=== PATIENT | male | born 1990 | race American Indian/Alaskan Native ===

== ENCOUNTER 2017-09-20 21:09 | Emergency (ER) | payer MEDICAID ==
[~2017-09-20] VITALS: Ht 175.3 cm; Wt 90.1 kg
[~2017-09-20 21:09] MED LIST: DIPH1TAB PO; IBUP-1986 PO; PANT-47 PO; PRED10TA PO
[2017-09-20 21:31] VITALS: BP 133/84
== END 2017-09-20 22:00 | disposition left against medical advice (07) ==
LOC: ER 21:28
DX: L23.7 Allergic contact dermatitis due to plants, except food (principal); F12.10 Cannabis abuse, uncomplicated; F15.10 Other stimulant abuse, uncomplicated; F11.10 Opioid abuse, uncomplicated
CPT/HCPCS: 99281

== ENCOUNTER 2018-02-27 08:31 | Inpatient (IN) | payer MEDICAID ==
[~2018-02-27] VITALS: Ht 175.3 cm; Wt 87.7 kg
[2018-02-27] MEDS ORDERED: acetaminophen 325mg tablet PO ONE ×2 (08:40→10:25)
[2018-02-27 09:02] LABS: BASOPHILS % (AUTO) 0 % (0-1); EOSINOPHILS % (AUTO) 0.1 % (0-6); HEMATOCRIT 42.2 % (42.0-52.0); HEMOGLOBIN 14.4 g/dl (14.0-17.9); LYMPHOCYTES # (AUTO) 0.8 X10'3 (1.1-4.8); LYMPHOCYTES % (AUTO) 5.4 % (21-51); MEAN CORPUSCULAR HEMOGLOBIN 28.9 PG (27.0-31.0); MEAN CORPUSCULAR HGB CONC 34.2 % (33.0-36.5); MEAN CORPUSCULAR VOLUME 84.6 FL (78-98); MEAN PLATELET VOLUME 6.7 FL (7.4-10.4); MONOCYTES # (AUTO) 1.3 X10'3 (0-0.9); MONOCYTES % (AUTO) 8.6 % (2-12); NEUTROPHILS # (AUTO) 13.1 X10'3 (1.8-7.7); NEUTROPHILS % (AUTO) 85.9 % (42-75); PLATELET COUNT 257 X10'3 (140-440); RED BLOOD COUNT 4.98 X10'6 (4.70-6.10); RED CELL DISTRIBUTION WIDTH 13.4 % (11.5-14.5); WHITE BLOOD COUNT 15.2 X10'3 (4.5-11.0)
[2018-02-27 09:13] LABS: PARTIAL THROMBOPLASTIN TIME 32 SECONDS (22-32); PROTHROMBIN TIME 10.3 SECONDS (9.0-12.0)
[2018-02-27 09:19] LABS: ALANINE AMINOTRANSFERASE 25 U/L (12-78); ALBUMIN 3.4 G/DL (3.4-5.0); ALBUMIN/GLOBULIN RATIO 0.8 (1.1-1.5); ALKALINE PHOSPHATASE 52 IU/L (46-116); ANION GAP 14 (8-16); ASPARTATE AMINO TRANSFERASE 17 U/L (10-37); BILIRUBIN,TOTAL 0.4 MG/DL (0.1-1.0); BLOOD UREA NITROGEN 12 MG/DL (7-18); BUN/CREATININE RATIO 12.4 (5.4-32.0); CALCIUM 9.1 MG/DL (8.5-10.1); CHLORIDE 95 MMOL/L (99-107); CREATININE 0.97 MG/DL (0.60-1.10); GLUCOSE 121 MG/DL (70-104); POTASSIUM 3.7 MMOL/L (3.5-5.1); SODIUM 135 MMOL/L (135-145); TOTAL CARBON DIOXIDE 26.1 MMOL/L (24-32); TOTAL PROTEIN 7.9 G/DL (6.4-8.2); eGFR > 90 ML/MIN
[2018-02-27 09:45] LABS: CLARITY,URINE CLEAR (Clear); COLOR,URINE YELLOW (Yellow); GLUCOSE, URINE NEGATIVE (Neg); KETONES,URINE NEGATIVE (Neg); LEUKOCYTE ESTERASE ,URINE NEGATIVE (Neg); NITRITES, URINE NEGATIVE (Neg); OCCULT BLOOD,URINE NEGATIVE (Neg); PH,URINE >=9.0 (4.8-8.0); PROTEIN,URINE 30 mg/dl (Neg)
[2018-02-27 09:50] LABS: UA COLLECTION TYPE NON-SPECIFIED
[2018-02-27 09:51] LABS: BACTERIA,URINE NONE SEEN /HPF (Neg); MUCUS STRANDS FEW /LPF (Neg); RBC,URINE 0-2 /HPF (0-2); SQUAMOUS EPITHELIAL CELL,UR FEW /LPF (FEW)
[2018-02-27] MEDS ORDERED: iohexol 350MG/ML 100ml bottle IV ONE (10:16)
[2018-02-27] MEDS ORDERED: normal saline 1000ML IV soln IVB ONE (10:30)
[2018-02-27] MEDS ORDERED: vancomycin/NS 1 GM ADD-VANTAGE 250 ML IV ONE (10:30)
[2018-02-27] MEDS ORDERED: magnesium 4gm in 100ml NS 100 ML IV PRN (14:05)
[2018-02-27] MEDS ORDERED: magnesium 1gm/100ml D5W IVPB 50 ML IV PRN (14:05)
[2018-02-27] MEDS ORDERED: acetaminophen 325mg tablet PO PRN ×2 (14:05)
[2018-02-27] MEDS ORDERED: HYDROcodone/acetaminophen 5mg/325mg tablet PO PRN (14:05)
[2018-02-27] MEDS ORDERED: potassium Cl 20 mEq SR tablet PO PRN ×2 (14:05)
[2018-02-27] MEDS ORDERED: potassium Cl 40MEQ/NS 500ml 500 ML IV PRN ×2 (14:05)
[2018-02-27] MEDS ORDERED: magnesium Cl slow-release 64mg tablet PO PRN (14:05)
[2018-02-27] MEDS ORDERED: ondansetron/PF 4mg/2ml inj IV PRN (14:05)
[2018-02-27] MEDS ORDERED: LORazepam 0.5 MG tablet PO PRN (14:10)
[2018-02-27] MEDS ORDERED: piperacillin/tazo 3.375gm/50ml 50 ML IV SCH (14:30)
[2018-02-27] MEDS: normal saline 1000ml 1,000 ML IV SCH ×2 (14:45→23:46)
[2018-02-27] MEDS ORDERED: ipratropium/albuterol 3ml nebule NEB PRN (14:55)
[2018-02-27] MEDS ORDERED: levoFLOXACIN-Levaquin 500mg/D5 100 ML IV ONE (14:55)
[2018-02-27] MEDS: methylPREDNISolone sod succ/PF 40mg inj. IV SCH ×2 (15:14→20:36)
[2018-02-27] MEDS ORDERED: NO HOME MEDS (15:15)
[2018-02-27 18:48] VITALS: BP 115/68
[2018-02-27] MEDS: ipratropium/albuterol 3ml nebule NEB SCH (21:36)
[2018-02-27] MEDS: HYDROcodone/acetaminophen 10/325mg tab PO PRN (21:51)
[2018-02-28] VITALS: BP 115/67
[2018-02-28] MEDS: methylPREDNISolone sod succ/PF 40mg inj. IV SCH (02:14)
[2018-02-28] MEDS: normal saline 1000ml 1,000 ML IV SCH (02:14)
[2018-02-28] MEDS: HYDROcodone/acetaminophen 10/325mg tab PO PRN (04:24)
[2018-02-28 05:43] LABS: BASOPHILS % (AUTO) 0 % (0-1); EOSINOPHILS % (AUTO) 0 % (0-6); HEMATOCRIT 39.7 % (42.0-52.0); HEMOGLOBIN 13.6 g/dl (14.0-17.9); LYMPHOCYTES # (AUTO) 0.8 X10'3 (1.1-4.8); LYMPHOCYTES % (AUTO) 6.8 % (21-51); MEAN CORPUSCULAR HEMOGLOBIN 28.8 PG (27.0-31.0); MEAN CORPUSCULAR HGB CONC 34.2 % (33.0-36.5); MEAN CORPUSCULAR VOLUME 84.3 FL (78-98); MEAN PLATELET VOLUME 7.3 FL (7.4-10.4); MONOCYTES # (AUTO) 0.1 X10'3 (0-0.9); MONOCYTES % (AUTO) 0.7 % (2-12); NEUTROPHILS # (AUTO) 10.9 X10'3 (1.8-7.7); NEUTROPHILS % (AUTO) 92.5 % (42-75); PLATELET COUNT 235 X10'3 (140-440); RED CELL DISTRIBUTION WIDTH 13.3 % (11.5-14.5); WHITE BLOOD COUNT 11.8 X10'3 (4.5-11.0)
[2018-02-28 05:51] LABS: ALBUMIN 2.8 G/DL (3.4-5.0); ANION GAP 8 (8-16); BLOOD UREA NITROGEN 12 MG/DL (7-18); CALCIUM 8.6 MG/DL (8.5-10.1); CHLORIDE 100 MMOL/L (99-107); CREATININE 0.92 MG/DL (0.60-1.10); GLUCOSE 169 MG/DL (70-104); MAGNESIUM 1.9 MG/DL (1.5-2.4); POTASSIUM 3.7 MMOL/L (3.5-5.1); SODIUM 136 MMOL/L (135-145); TOTAL CARBON DIOXIDE 27.6 MMOL/L (24-32); eGFR > 90 ML/MIN
[2018-02-28] MEDS: ipratropium/albuterol 3ml nebule NEB SCH (07:52)
[2018-02-28 08:00] VITALS: BP 99/57
[2018-02-28] MEDS ORDERED: levoFLOXACIN-Levaquin 500mg/D5 100 ML IV SCH (08:00)
[2018-02-28] MEDS ORDERED: K and/or MAG REPLACEMENT MC SCH (08:00)
== END 2018-02-28 10:00 | disposition left against medical advice (07) | DRG 203 ==
LOC: ER 08:31 → ED HOLD 14:01 → EDBEDREQ 17:12 → SUR 3N 17:50
PROVIDERS: ADMIT Internal Medicine; ATTEND Family Medicine
PROC: B32T1ZZ Computerized Tomography (CT Scan) of Left Pulmonary Artery using Low Osmolar Contrast (ICD-10-PCS; principal; 2018-02-27)
PROC: B3201ZZ Computerized Tomography (CT Scan) of Thoracic Aorta using Low Osmolar Contrast (ICD-10-PCS; 2018-02-27)
PROC: B32S1ZZ Computerized Tomography (CT Scan) of Right Pulmonary Artery using Low Osmolar Contrast (ICD-10-PCS; 2018-02-27)
DX: R07.89 Other chest pain (principal); F41.9 Anxiety disorder, unspecified; Z53.21 Procedure and treatment not carried out due to patient leaving prior to being seen by health care provider; F12.90 Cannabis use, unspecified, uncomplicated; F17.210 Nicotine dependence, cigarettes, uncomplicated; F15.90 Other stimulant use, unspecified, uncomplicated; F11.90 Opioid use, unspecified, uncomplicated; K21.9 Gastro-esophageal reflux disease without esophagitis; Z80.1 Family history of malignant neoplasm of trachea, bronchus and lung; Z87.01 Personal history of pneumonia (recurrent); Z79.899 Other long term (current) drug therapy
CPT/HCPCS: 36415; 71045; 71275; 80048; 80053; 81001; 83605; 83735; 84145; 84484; 85025; 85610; 85651; 85730; 86140; 87040; 87070; 87088; 93005; 93306; 94640; 94760; A6258; J1956; J2543; J2920; J3370; J7030; Q9967

== ENCOUNTER 2018-03-09 09:03 | Emergency (ER) | payer MEDICAID ==
[~2018-03-09] VITALS: Ht 175.3 cm; Wt 86.4 kg
[~2018-03-09 09:03] MED LIST changes: -DIPH1TAB PO; -IBUP-1986 PO; +NO HOME MEDS; -PANT-47 PO; -PRED10TA PO
[2018-03-09] MEDS ORDERED: SULF1TAB49 PO (09:34)
[2018-03-09] MEDS ORDERED: DIPH25CA83 PO (09:34)
[2018-03-09] MEDS ORDERED: diphenhydrAMINE 25mg capsule PO ONE (09:35)
[2018-03-09] MEDS ORDERED: sulfamethoxazole/trimethoprim DS (800/160mg) tablet PO ONE (09:35)
[2018-03-09] MEDS ORDERED: TETanus/Pertussis (Acell)/Diphther VAC/PF (Tdap-Adult) 0.5ml syringe IM ONE (09:35)
[2018-03-09] MEDS ORDERED: ketorolac trometh inj. 60 MG/2 ML VIAL IM ONE (09:50)
[2018-03-09 09:56] VITALS: BP 129/99
== END 2018-03-09 09:58 | disposition home or self-care (01) ==
LOC: ER 09:08
DX: L98.8 Other specified disorders of the skin and subcutaneous tissue (principal); F12.90 Cannabis use, unspecified, uncomplicated; F15.90 Other stimulant use, unspecified, uncomplicated; F11.90 Opioid use, unspecified, uncomplicated; J18.9 Pneumonia, unspecified organism; Z79.2 Long term (current) use of antibiotics
CPT/HCPCS: 90471; 90715; 96372; 99284; J1885; Q0163

== ENCOUNTER 2018-03-14 11:07 | Emergency (ER) | payer MEDICAID ==
[~2018-03-14] VITALS: Ht 175.3 cm; Wt 87.0 kg
[~2018-03-14 11:07] MED LIST changes: +DIPH25CA83 PO; +SULF1TAB49 PO
[2018-03-14 11:24] VITALS: BP 125/79
[2018-03-14] MEDS ORDERED: triamcinolone acetonide 40mg/ml inj IM ONE (11:50)
== END 2018-03-14 12:18 | disposition home or self-care (01) ==
LOC: ER 11:08
DX: L23.9 Allergic contact dermatitis, unspecified cause (principal); F12.90 Cannabis use, unspecified, uncomplicated; F15.90 Other stimulant use, unspecified, uncomplicated; F11.90 Opioid use, unspecified, uncomplicated; Z79.899 Other long term (current) drug therapy
CPT/HCPCS: 96372; 99283; J3301

== ENCOUNTER 2018-07-27 19:51 | Emergency (ER) | payer MEDICAID, OTHER ==
[~2018-07-27] VITALS: Ht 175.3 cm; Wt 88.0 kg
[~2018-07-27 19:51] MED LIST changes: -SULF1TAB49 PO
[2018-07-27] MEDS ORDERED: AMOX500C2 PO (21:57)
[2018-07-27] MEDS ORDERED: amoxicillin 250mg capsule PO ONE (22:00)
[2018-07-27 22:20] VITALS: BP 133/81
== END 2018-07-27 22:24 | disposition home or self-care (01) ==
LOC: ER 19:52
DX: K08.89 Other specified disorders of teeth and supporting structures (principal); F12.90 Cannabis use, unspecified, uncomplicated; F15.90 Other stimulant use, unspecified, uncomplicated; F11.90 Opioid use, unspecified, uncomplicated; Z79.2 Long term (current) use of antibiotics; Z79.899 Other long term (current) drug therapy
CPT/HCPCS: 99283

== ENCOUNTER 2018-12-29 07:44 | Emergency (ER) | payer MEDICAID, OTHER ==
[~2018-12-29] VITALS: Ht 175.3 cm; Wt 93.2 kg
[2018-12-29 07:55] VITALS: BP 140/88
[2018-12-29] MEDS ORDERED: ACET-2119 PO (08:27)
[2018-12-29] MEDS ORDERED: IBUP-1985 PO (08:27)
[2018-12-29] MEDS ORDERED: AMOX-580 PO (08:27)
== END 2018-12-29 08:45 | disposition home or self-care (01) ==
LOC: ER 07:45
DX: K02.9 Dental caries, unspecified (principal); R51 Headache; F12.90 Cannabis use, unspecified, uncomplicated; F15.90 Other stimulant use, unspecified, uncomplicated; F11.90 Opioid use, unspecified, uncomplicated; Z79.899 Other long term (current) drug therapy
CPT/HCPCS: 99283

== ENCOUNTER 2020-10-25 11:00 | Emergency (ER) | payer MEDICAID ==
[~2020-10-25] VITALS: Ht 175.3 cm; Wt 90.0 kg
[~2020-10-25 11:00] MED LIST changes: +IBUP-1985 PO
[2020-10-25 11:19] VITALS: BP 139/84
[2020-10-25] MEDS ORDERED: DOXY100C76 PO (11:38)
[2020-10-25] MEDS ORDERED: CLIN300C54 PO (11:39)
== END 2020-10-25 11:47 | disposition home or self-care (01) ==
LOC: ER 11:01
DX: K04.7 Periapical abscess without sinus (principal); K08.89 Other specified disorders of teeth and supporting structures; F12.90 Cannabis use, unspecified, uncomplicated; F15.90 Other stimulant use, unspecified, uncomplicated; F11.90 Opioid use, unspecified, uncomplicated; Z87.01 Personal history of pneumonia (recurrent); Z79.2 Long term (current) use of antibiotics; Z79.899 Other long term (current) drug therapy
CPT/HCPCS: 99283

== ENCOUNTER 2021-02-25 18:28 | Emergency (ER) | payer MEDICAID ==
[~2021-02-25] VITALS: Ht 175.3 cm; Wt 86.4 kg
[2021-02-25 18:33] VITALS: BP 134/81
[2021-02-25] MEDS ORDERED: triamcinolone acetonide 40mg/ml inj IJ ONE (20:55)
[2021-02-25] MEDS ORDERED: azithromycin 250mg tablet PO ONE (20:55)
[2021-02-25] MEDS ORDERED: CefTRIAXone 250MG IM Kit w/LIDOcaine IM ONE (20:55)
== END 2021-02-26 01:45 | disposition home or self-care (01) ==
LOC: ER 18:29
DX: L23.7 Allergic contact dermatitis due to plants, except food (principal); A64 Unspecified sexually transmitted disease; R30.9 Painful micturition, unspecified; F12.90 Cannabis use, unspecified, uncomplicated; F15.90 Other stimulant use, unspecified, uncomplicated; F11.90 Opioid use, unspecified, uncomplicated; Z87.01 Personal history of pneumonia (recurrent); Z79.899 Other long term (current) drug therapy
CPT/HCPCS: 96372; 99283; J0696; J3301

== ENCOUNTER 2021-10-16 18:37 | Emergency (ER) | payer MEDICAID ==
[~2021-10-16] VITALS: Ht 175.3 cm; Wt 90.5 kg
[2021-10-16 19:08] VITALS: BP 140/82
[2021-10-16] MEDS ORDERED: ibuprofen 200mg tablet PO ONE ×2 (20:15→20:25)
== END 2021-10-16 20:52 | disposition home or self-care (01) ==
LOC: ER 18:38
DX: L53.9 Erythematous condition, unspecified (principal); M79.671 Pain in right foot; M79.672 Pain in left foot; F17.210 Nicotine dependence, cigarettes, uncomplicated; F12.10 Cannabis abuse, uncomplicated; F11.10 Opioid abuse, uncomplicated; Z79.899 Other long term (current) drug therapy
CPT/HCPCS: 73630; 99283

== ENCOUNTER 2021-11-15 19:31 | Emergency (ER) | payer MEDICAID ==
[~2021-11-15] VITALS: Ht 175.3 cm; Wt 81.0 kg
--- NOTE | 2021-11-15 19:53 | NUR ---
not in lobby
[2021-11-15 20:21] VITALS: BP 146/90
== END 2021-11-15 21:16 | disposition left against medical advice (07) ==
LOC: ER 19:31
DX: N23 Unspecified renal colic (principal); Z53.21 Procedure and treatment not carried out due to patient leaving prior to being seen by health care provider

== ENCOUNTER 2021-11-16 05:59 | Emergency (ER) | payer MEDICAID ==
--- NOTE | 2021-11-16 06:35 | NUR ---
Second call to triage, not in lobby
== END 2021-11-16 06:54 | disposition left against medical advice (07) ==
LOC: ER 05:59
DX: R30.9 Painful micturition, unspecified (principal); Z53.21 Procedure and treatment not carried out due to patient leaving prior to being seen by health care provider

== ENCOUNTER 2022-11-22 20:02 | Emergency (ER) | payer MEDICAID ==
[~2022-11-22] VITALS: Ht 175.3 cm; Wt 93.2 kg
[2022-11-22 20:09] VITALS: BP 125/76
== END 2022-11-22 20:33 | disposition home or self-care (01) ==
LOC: ER 20:02
DX: F12.90 Cannabis use, unspecified, uncomplicated; F15.90 Other stimulant use, unspecified, uncomplicated; F11.90 Opioid use, unspecified, uncomplicated; Z79.899 Other long term (current) drug therapy
CPT/HCPCS: 99283

== ENCOUNTER 2025-07-13 04:24 | Emergency (ER) | payer SELFPAY ==
[~2025-07-13] VITALS: Ht 175.3 cm; Wt 90.9 kg
[~2025-07-13 04:24] MED LIST changes: -IBUP-1985 PO; +IBUP600T52 PO
[2025-07-13 04:31] VITALS: BP 153/93; PULSE 86; RESP 16; TEMP 97.8; O2SAT 100
== END 2025-07-13 06:21 | disposition left against medical advice (07) ==
LOC: ER 04:26
DX: R05.9 Cough, unspecified (principal)
CPT/HCPCS: 99281